=== PATIENT | male | born 1965 | race Hispanic/Latino ===

== ENCOUNTER 2021-05-04 16:03 | Emergency (ER) | payer OTHER ==
[~2021-05-04] VITALS: Ht 160 cm; Wt 87.3 kg
[2021-05-04] MEDS ORDERED: CLONIDINE HCL 0.2 MG TAB PO STA (16:20)
[2021-05-04] MEDS ORDERED: CLONIDINE HCL 0.1 MG TAB ONE (16:38)
[2021-05-04] MEDS ORDERED: METOPROLOL TARTRATE 25 MG TAB PO STA (17:14)
[2021-05-04] MEDS ORDERED: METOPROLOL TARTRATE 50 MG TAB PO STA (17:18)
[2021-05-04] MEDS ORDERED: METOPROLOL TARTRATE 50 MG TAB ONE (17:27)
== END 2021-05-04 17:41 | disposition home or self-care (01) ==
LOC: FSED 16:19
DX: B35.9 Dermatophytosis, unspecified (principal); R03.0 Elevated blood-pressure reading, without diagnosis of hypertension
CPT/HCPCS: 99283